=== PATIENT | male | born 1945 | race Caucasian/White ===

== ENCOUNTER → 2017-11-04 | Outpatient (CLI) | payer MEDICARE, OTHER ==
[~2017-11-04] MED LIST: ASPIRIN 32325 MG/TAB PO; ASPIRIN 81M81 MG/TA2 PO; HYZAAR 12.5 MG-1 TAB PO; LIPITOR 80MG80 MG PO; PLAVIX 75MG TAB75 MG PO; TOPROL XL 25MG25 MG PO; ZOCOR 20MG20 MG PO; ZOCOR 40MG40 MG PO
== END ==
LOC: COL.RAD 07:42
DX: Z13.6 Encounter for screening for cardiovascular disorders (principal); Z87.891 Personal history of nicotine dependence